=== PATIENT | female | born 1945 ===

== ENCOUNTER → 2021-11-17 08:51 | Outpatient (BNVA) | payer MEDICARE, OTHER, SELFPAY | PROVIDERS: PCP Family Medicine; Visit Provider Surgery | DX: Z86.010 Personal history of colon polyps (principal) | CPT/HCPCS: 99203 ==

== ENCOUNTER 2022-02-26 06:46 | Day surgery (SDC) | payer MEDICARE, OTHER, SELFPAY ==
[2022-02-24 08:58] VITALS: BMI 33.0
[2022-02-26 07:02] VITALS: BP 160/83; PULSE 83; RESP 20; TEMP 36.2; O2SAT 95
[2022-02-26] MEDS: sodium chloride 0.9% 1,000 ML 30 ML IV (07:24)
[2022-02-26 07:25] LABS: Glucose Point of Care 90 mg/dL (70-110)
--- NOTE | 2022-02-26 08:11 | ANES.PREANE2 ---
Pre-Anesthetic Assessment Height/Weight: Height 1.55 m Weight 79.379 kg Temp Pulse Resp BP Pulse Ox O2 Del Method 97.1 F L 83 20 H 160/83 95 02/26/22 07:02 02/26/22 07:02 02/26/22 07:02 02/26/22 07:02 02/26/22 07:02 02/26/22 07:02 Preop Diagnosis: screening Operation Date: 02/26/22 08:30 Proposed Procedures p Colonoscopy 36386,Z86.010(Not Applicable) - Duy Crandall DO Familial anesthetic complications: None Was Beta Tomer taken within 24 hours: N/A Was Clonidine taken within 24 hours: N/A Last intake: Intake Last Liquid Date 02/25/22 Last Liquid Time 22:00 Last Solid Date 02/24/22 Last Solid Time 22:00 Social No alcohol and No tobacco Exam alert, oriented x 3, clear to auscultation bilaterally and regular rate & rhythm Airway Submandibular: within normal limits Cervical ROM: within normal limits Mallampati: Class II Dentition: full History/ROS No significant history except as noted Pulmonary None reported CV/HEM Hypertension None reported Hepatic None reported GI Gastroesophageal Reflux Disease (well controlled) Metabolic Diabetes Mellitus (pre-diabetic ) [facility] [place] None reported Neuropsych None reported Anesthetic Plan ASA status: 2 Anesthesia: Anesthesia Evaluation and MAC Risk of > 500 ml blood loss (7ml/kg in children): No Medications/Allergies Home Medications Medication Instructions Recorded Confirmed Last Taken Type citalopram 10 mg tablet 10 mg PO DAILY 11/17/21 02/26/22 02/25/22 History denosumab 60 mg/mL subcutaneous 1 mg SUBCUT DIRECTED 11/17/21 02/26/22 5 Months Ago History syringe (Prolia) ~09/26/21 losartan 100 mg tablet 100 mg PO DAILY 11/17/21 02/26/22 02/25/22 History metformin 500 mg tablet 500 mg PO DAILY 11/17/21 02/26/22 02/24/22 History 1999 rosuvastatin 5 mg tablet 5 mg PO DAILY 11/17/21 02/26/22 02/25/22 History Allergies Allergy/AdvReac Type Severity Reaction Status Date / Time gluten Allergy ADR-Diarrhe Uncoded 11/17/21 09:01 a Current Medications Generic Name Dose Route Start Last Admin Trade Name Freq PRN Reason Stop Dose Admin Sodium Chloride 1,000 mls @ 30 mls/hr 02/26/22 07:00 02/26/22 07:24 Sodium Chloride 0.9% IV 02/27/22 06:59 30 mls/hr .Q24H PAULA Administration PFSH Anesthesia Medical History (Updated 11/17/21 @ 09:19 by Duy Crandall DO) Celiac disease History of colon polyps Osteoporosis Prediabetes Surgical History History of prolapse of bladder Hx of hysterectomy Social History Smoking and tobacco status: never smoked Data Anesthesia Cardiac Studies: No Data to Display
--- NOTE | 2022-02-26 08:26 | P.HP_ITS ---
Providers/Chief Complaint Primary Care Provider: Sury Diaz MD Chief Complaint: Z89.010 History of Present Illness Vandana Monsivais is a 76 year old female here for colonoscopy Medications/Allergies Home Medications Medication Instructions Recorded Confirmed Last Taken Type citalopram 10 mg tablet 10 mg PO DAILY 11/17/21 02/26/22 02/25/22 History denosumab 60 mg/mL subcutaneous 1 mg SUBCUT DIRECTED 11/17/21 02/26/22 5 Months Ago History syringe (Prolia) ~09/26/21 losartan 100 mg tablet 100 mg PO DAILY 11/17/21 02/26/22 02/25/22 History metformin 500 mg tablet 500 mg PO DAILY 11/17/21 02/26/22 02/24/22 History 2000 rosuvastatin 5 mg tablet 5 mg PO DAILY 11/17/21 02/26/22 02/25/22 History Allergies Allergy/AdvReac Type Severity Reaction Status Date / Time gluten Allergy ADR-Diarrhe Uncoded 11/17/21 09:01 a PFSH Acute PFSH: Medical History (Updated 11/17/21 @ 09:19 by Duy Crandall DO) Celiac disease History of colon polyps Osteoporosis Prediabetes Surgical History History of prolapse of bladder Hx of hysterectomy Social History Smoking and tobacco status: never smoked Vitals/I&O/Wt Last Vital Signs Temp 97.1 F L 02/26/22 07:02 Pulse 83 02/26/22 07:02 Resp 20 H 02/26/22 07:02 BP 160/83 02/26/22 07:02 Pulse Ox 95 02/26/22 07:02 O2 Del Method 02/26/22 07:02 Weight last 48 hrs Weight 175 lb A&P Assessment and plan (1) History of colon polyps: Plan Colonoscopy Attestations Medical Necessity Statement*: Home Coding Level of Care Code Acute [employer] Diagnoses History of colon polyps Z86.010
[2022-02-26 09:05] VITALS: BP 155/70; PULSE 85; RESP 12; TEMP 36.1; O2SAT 95
[2022-02-26 09:15] VITALS: BP 171/96; PULSE 81; RESP 14; O2SAT 93
--- NOTE | 2022-02-26 10:15 | ANE.PACU2 ---
Inpatient post-anesthesia follow up: Airway intact: Yes Vital signs: Temperature 97 F Pulse Rate 81 Respiratory Rate 14 Blood Pressure 171/96 Pulse Oximetry 93 Oxygen Delivery Me thod Room Air Oxygen Flow Rate Fraction of Inspir ed Oxygen Hydration adequate: Yes Nausea and vomiting: No Pain level: 0 Mental status: Baseline
== END 2022-02-26 10:00 | disposition home or self-care (01) ==
PROVIDERS: PCP Family Medicine; Visit Provider Surgery
PROC: 0DJD8ZZ Inspection of Lower Intestinal Tract, Via Natural or Artificial Opening Endoscopic (ICD-10-PCS; CPT 45378; principal; 2022-02-26 08:30)
DX: Z12.11 Encounter for screening for malignant neoplasm of colon (principal); K57.30 Diverticulosis of large intestine without perforation or abscess without bleeding; K90.0 Celiac disease; K21.9 Gastro-esophageal reflux disease without esophagitis; Z86.010 Personal history of colon polyps; M81.0 Age-related osteoporosis without current pathological fracture; K64.8 Other hemorrhoids; I10 Essential (primary) hypertension; E11.9 Type 2 diabetes mellitus without complications
CPT/HCPCS: 36416; 82962; G0121; J2704; J7030